=== PATIENT | male | born 1980 | race Caucasian/White ===

== ENCOUNTER → 2018-02-11 | Day surgery (SDC) | payer BC ==
[2018-02-08 13:49] VITALS: BMI 36.9
[~2018-02-11] MED LIST: DEXAMETHASONE SOD PHOS (MDV) 100 MG/10 ML VIAL ONE; DEXAMETHASONE SOD PHOSPHATE 10 MG/ML 1 ML VIAL IV ONE; GLYCOPYRROLATE 0.2 MG/ML 2 ML VIAL ONE; HYDROmorphone (PF) 1 MG/ML ONE; HYDROmorphone 0.5 MG/0.5 ML SYRINGE IVP ONE; KETOROLAC 30 MG/ML 1 ML VIAL ONE; LABETALOL 5 MG/ML VIAL MDV ONE; LACTATED RINGERS 1,000 ML IV ONE; LACTATED RINGERS 1,000 ML IV SCH; LIDOCAINE 1% 20 ML VIAL (10MG/ML) FOR IV START INTRADERMA ONE; LIDOCAINE 1% INJ 10MG/ML (20 ML MDV) ONE; METOPROLOL TARTRATE 5 MG/5 ML VIAL IVP ONE; MIDAZOLAM 2 MG/2 ML VIAL IV PRN; MIDAZOLAM 2 MG/2 ML VIAL ONE; NEOSTIGMINE 1 MG/ML 10 ML VIAL ONE; ONDANSETRON 4 MG/2 ML VIAL IVP ONE; PROPOFOL 10 MG/ML 20 ML VIAL IV ONE; ROCURONIUM BROMIDE 10 MG/ML 10 ML VIAL IV ONE; ROPIVACAINE 5 MG/ML 30 ML VIAL MISCELLANE ONE; SCOPOLAMINE 1.5MG/72HR PATCH TRANSDERM ONE; SUCCINYLCHOLINE CHLORIDE VIAL 200 MG/10 ML VIAL IV ONE; fentaNYL (PF) 50 MCG/ML 2 ML AMP IV PRN; fentaNYL (PF) 50 MCG/ML 2 ML AMP ONE; hydrALAZINE HCL 20 MG/ML 1 ML VIAL ONE
[2018-02-11 12:44] VITALS: RESP 16
[2018-02-11] MEDS: HYDROmorphone 0.5 MG/0.5 ML SYRINGE IVP ONE ×2 (18:48→19:00)
[2018-02-11 18:58] VITALS: TEMP 98.6
[2018-02-11 19:48] VITALS: BP 119/62; PULSE 97
--- NOTE | 2018-02-11 20:43 | P.ONQ ---
Anesthesiology Proc Note - PNB - Peripheral Nerve Block Performed Right Popliteal Single Time Out Performed: Yes Procedure Start Time: 19:13 Indication: Acute Post-Operative Pain, Analgesia Specifically requested for management of pain by DrStefan: Julio Rizzo Sedation Type: Sedate with meaningful contact maintained Preparation: Sterile Prep Position: Prone (l lat decub) Catheter: None Needle Types: Other (see comment) (Pajunk) Needle Size: 100mm (4") Needle Gauge: 21 Technique: Ultrasound Injectate: 0.5% Ropivacaine (see comment for volume) (30) Blood Aspirated: No Pain Paresthesia on Injection Noted: No Resistance on Injection: Normal Events: Uneventful and Well Tolerated
--- NOTE | 2018-02-11 21:46 | XR ---
Right ankle 2 views. History operative exam. Comparison none. FINDINGS: 2 fluoroscopic images were obtained in the operating room that show apparent placement of external fi xation screws in the distal shaft of the tibia and the posterior calcaneus. There are plate and screw s fixating the talus posteriorly. Bones appear in anatomic position. The remainder of exam is unremar kable. IMPRESSION: No complicating process seen.
--- NOTE | 2018-02-12 07:28 | FL ---
EXAMINATION TYPE: FL guidance operating room DATE OF EXAM: 02/11/2018 CLINICAL HISTORY: Right ankle fracture TECHNIQUE: Fluoroscopy. COMPARISON: None. FINDINGS/IMPRESSION: Fluoroscopic guidance was provided during procedure performed by Dr. Rizzo. A total of 64 seconds of fluoroscopic time was utilized during the procedure and 2 spot images was a cquired demonstrating external fixation of the right lower extremity.
--- NOTE | 2018-02-16 13:40 | OP ---
OPERATIVE REPORT DATE OF SURGERY: 02/11/2018. PREOPERATIVE DIAGNOSES: 1. Closed right posteromedial talar body fracture. 2. Right subtalar dislocation. POSTOPERATIVE DIAGNOSIS: 1. Closed right posteromedial talar body fracture. 2. Right subtalar dislocation. PROCEDURE: 1. Open reduction and internal fixation of right posteromedial talar body fracture. 2. Application of uniplanar right ankle spanning external fixator. 3. Application of short-leg splint by physician. SURGEON: Dr. Julio Rizzo. ANTIQUE CLOCK REPAIRER: Crystal SOTO (Crystal RDZ was required as a skilled assistant city attorney for patient positioning, surgical exposure, retraction, performance of open reduction and internal fixation, closure of wound and application of splint). ANESTHESIA: General plus popliteal and saphenous nerve block. FLUIDS: 1400 mL crystalloid. ESTIMATED BLOOD LOSS: 100 mL. TOURNIQUET TIME: 90 minutes. INDICATION: The patient is a very pleasant, previously healthy 37-year-old male who sustained an isolated injury to his right ankle on 01/24/2018. The patient slipped off of a ladder. He was initially seen at an outside ER at [facility] in [place]. The ankle was reduced and he was placed in a splint. X-rays and a CT scan were obtained. He was initially seen by Dr. Shields in our office and was then referred to my office. On initial presentation, the patient had significant swelling and no wrinkling of the skin. He was placed in a prefabricated AFO type brace to allow for resolution of swelling. The patient was seen last week at which point his swelling had resolved to the point that there is wrinkling of the skin and his soft tissue envelope appeared amenable to surgery. My recommendation was to perform an open reduction and internal fixation of the posteromedial talar body fracture through a posterior medial approach. We also discussed the need for placing an ankle spanning external fixator to help with distraction and visualization. We discussed the potential risks and complications of surgery including, but not limited to risk of anesthesia, risk of superficial infection, risk of deep infection, risk of delayed wound healing, risk of wound necrosis, risk of damage to local blood vessels or nerves, risk of fracture nonunion, risk of fracture malunion, risk of posttraumatic arthritis, risk of postoperative ankle instability, risk of chronic pain, risk of chronic swelling, risk of dissatisfaction with surgery, risk of need for further surgery, risk of symptomatic hardware, risk of DVT, risk of PE, risk of other medical complications and possibly loss of life or limb. The patient voiced his understanding for these potential complications as well as the possibility for other less common complications. He also voiced his understanding for the high risk of posttraumatic arthritis due to the fracture involving both the ankle and subtalar joints. He provided his verbal and written consent to go forward with surgery. PROCEDURE: The patient was identified in preoperative holding and I reviewed the consent form with the patient and his family. All their questions were answered. The patient was then brought back to the operating room. A general anesthetic and preoperative antibiotics were administered. The patient was then positioned on the OR table in a supine position. A bump was placed under the right buttock internally rotating the leg to neutral. A tourniquet was applied to the proximal aspect of the right leg. All bony prominences were well padded. A time-out was then performed identifying the correct patient, operative extremity, and procedure. I began by placing an external fixator while the patient was supine without the tourniquet inflated. Stab incisions were made over the distal tibial shaft and medial aspect of the calcaneus. Skin incision was made with a 15 blade scalpel. Dissection was carried down bluntly through the subcutaneous tissue with tenotomy scissors. A drill bit was used to create a path from medial to lateral and the posterior tuberosity of the calcaneus and from the medial distal tibia to the lateral distal tibia. A partially threaded 5 mm Schanz pins were placed in the distal tibia and calcaneus to allow for application of an external fixator. Clamps and a bar was placed medially. At this point, the drapes were taken down. The patient was transferred back to the [facility]. He was then flipped back onto the OR table in a supine position. All bony prominences were well padded. The right leg was once again prepped and draped in the standard sterile fashion. The leg was then elevated, exsanguinated with an Esmarch bandage and the tourniquet was inflated to 250 mmHg. I began by outlining a longitudinal incision just medial to the Achilles tendon over the posterior aspect of the ankle. Skin incision was made with a 15 blade scalpel. Dissection was carried down carefully through the subcutaneous tissue with tenotomy scissors, taking care not to violate the paratenon of the Achilles tendon. Dissection was carried down to the fascia over the FHL tendon, which was incised longitudinally in line with the skin incision. The FHL tendon was then retracted medially, taking care to also retract the neurovascular bundle. K-wires were placed to allow retraction of the FHL tendon. Once the posterior aspect of the ankle was visualized, the capsule was incised longitudinally. The posteromedial talar body was immediately visualized and was significantly displaced. At this point, distraction was applied through the external fixator across the ankle, hoping to visualize the fracture. The fracture was then circumferentially exposed and early callus and consolidating hematoma was debrided using a pituitary rongeur and dental picks. There was a large intercalary fragment with no articular cartilage. There were also multiple small articular fragments both in the ankle and subtalar joint, which were debrided. Once the fracture site was completely freed, it was keyed back into place using the posterior subtalar joint as a andrade to reduction. Once the fragment was reduced visually, it was held in place with multiple K-wires. The reduction was verified using fluoroscopy. There was a small hole in the articular surface of the tibia from the intercalary fragment. The intercalary fragment had no cartilage as the cartilage had completely laminated off the intercalary fragment. The reduction otherwise appeared anatomic. The intercalary fragment was morselized and packed into this defect. Once the reduction was deemed to be anatomic, a 6 hole 2.0 mm plate was contoured over the posterior body of the talus, making sure that the plate sat in an extra-articular position. Once the 2-0 plate was in an acceptable position, it was held in place with an olive tip K-wire. Then 2.4 mm lag screws were placed through the posteromedial fragment into the talar body. A fully threaded solid 2.4 lag screws were placed into the posteromedial talar body fragment. I then placed two 2.4 mm non-lag screws through the lateral aspect of the talus. On inspection, the fracture appeared to be anatomically reduced. Fluoroscopy was brought in to verify the reduction of the fragment and placement of the hardware. The fracture appeared to be reduced and the hardware was in acceptable position. At this point, the wound was copiously irrigated. The deep fascia over the FHL was closed with a running 0 Vicryl stitch. The tourniquet was let down and there were no significant bleeders particularly from the neurovascular bundle. The deep subcutaneous was reapproximated using 2-0 Vicryl. The skin was closed with 3-0 Monocryl. The skin was then closed with 3-0 nylon horizontal mattress stitches. Once the wound was closed, I verified that all instrument, sponge and sharp counts were correct. The external fixator was then removed and the Schanz pins were removed from the tibia and calcaneus. The pin sites were gently debrided but were not closed. A sterile dressing consisting of Betadine-soaked Adaptic, 4 x 4 and Webril was applied. The drapes were taken down and a well-padded bulky Arevalo splint was placed with the ankle in neutral. The patient was then transferred from the prone position supine on the [facility] and taken to PACU after he was extubated. PLAN: The patient is going to discharge home as an outpatient. He was given pain control and a stool softener. He is to remain strictly nonweightbearing on his operative extremity. He will follow up in 2 weeks for splint removal and x-rays of the ankle and foot out of the splint. MMODL / IJN: [id number] /
== END | disposition home or self-care (01) ==
LOC: OR 11:29
PROVIDERS: ATTEND Orthopaedic Surgery
DX: S92.121A Displaced fracture of body of right talus, initial encounter for closed fracture (principal); W11.XXXA Fall on and from ladder, initial encounter; E78.5 Hyperlipidemia, unspecified; G47.33 Obstructive sleep apnea (adult) (pediatric); F39 Unspecified mood [affective] disorder; Z99.89 Dependence on other enabling machines and devices; Z79.82 Long term (current) use of aspirin; Z79.891 Long term (current) use of opiate analgesic; Z79.899 Other long term (current) drug therapy; Z87.891 Personal history of nicotine dependence
CPT/HCPCS: 64450; 28445; 20690; 73600; C1713; J2250; J0330; J0360; J1100 ×2; J2710; J0690; J2405; J2001; J3010; J1885; J1170 ×2; J2795; J2704